=== PATIENT | female | born 2000 ===

== ENCOUNTER 2021-10-21 10:19 | Outpatient (CLI) | payer SELFPAY ==
[2021-10-21 11:24] VITALS: BP 128/81
== END 2021-10-21 11:38 | disposition home or self-care (01) ==
LOC: TRG 10:19 → APU 10:22 → TRG 11:38
PROVIDERS: ATTEND Obstetrics & Gynecology
DX: Z34.93 Encounter for supervision of normal pregnancy, unspecified, third trimester (principal); Z3A.37 37 weeks gestation of pregnancy
CPT/HCPCS: 59025

== ENCOUNTER 2021-10-22 16:40 | Inpatient (IN) | payer SELFPAY ==
[2021-10-22] MEDS ORDERED: OXYTOCIN 10 UNIT/1 ML INJ IM PRN (19:35)
[2021-10-22] MEDS ORDERED: BUTORPHANOL 2 MG/1 ML INJ IV PRN ×2 (19:35)
[2021-10-22] MEDS ORDERED: METHYLERGONOVINE MALEATE 0.2 MG/ML VIAL IM PRN (19:35)
[2021-10-22] MEDS ORDERED: LIDOCAINE (2%) 20 MG/1 ML VIAL 20 ML MDV INFILTRATI ONE (19:35)
[2021-10-22] MEDS ORDERED: ePHEDrine SULFATE 50 MG/1 ML INJ IV PRN (19:35)
[2021-10-22] MEDS ORDERED: MINERAL OIL 30 ML ORAL LIQD PO PRN (19:35)
[2021-10-22] MEDS ORDERED: CARBOPROST TROMETHAMINE 250 MCG/1 ML INJ IM PRN (19:35)
[2021-10-22] MEDS ORDERED: TERBUTALINE 1 MG/1 ML INJ SUB-Q PRN (19:35)
[2021-10-22] MEDS ORDERED: ACETAMINOPHEN 325 MG TAB PO PRN (19:35)
[2021-10-22] MEDS ORDERED: miSOPROStol 200 MCG TAB PR PRN (19:35)
[2021-10-22] MEDS ORDERED: LOPERAMIDE 2 MG CAP PO PRN (19:35)
--- NOTE | 2021-10-22 19:56 | History and Physical Report ---
History of Present Illness Date of examination: 10/22/21 Date of admission: 10/22/2021 Chief complaint: C/O uc x several hours History of present illness: 21 y/o presented to [facility] @ 39.5 wks with c/o uc x several hours. She denied VB or LOF and admitted to active FM. Pt states she initiated her pnc @ [facility] early preg and had no preg complications except for anemia in which she took Fe qd. Med, surgical, family hx is unremarkable. GBS is neg. Pt was found to be in labor and was admitted to L&D for delivery. Past History Past Medical History: no pertinent history Past Surgical History: no surgical history Family/Genetic History: none Social history: single, full code - Obstetrical History Expected Date of Delivery: 10/24/21 Actual Gestation: 39 Week(s) 5 Day(s) : 1 Para: 0 Medications and Allergies Allergies Allergy/AdvReac Type Severity Reaction Status Date / Time No Known Allergies Allergy Verified 10/21/21 11:13 Home Medications Medication Instructions Recorded Confirmed Last Taken Type Vit-Fe Fumar-FA [ 1 tab PO QDAY 10/21/21 10/21/21 10/20/21 History Vitamin] Active Meds: Active Medications Carboprost Tromethamine (Carboprost Tromethamine 250 Mcg/1 Ml Inj) 250 mcg IM ONCE PRN PRN Reason: Uterine Bleeding Ephedrine Sulfate (Ephedrine Sulfate 50 Mg/1 Ml Inj) 10 mg IV Q2M PRN PRN Reason: Hypotension Oxytocin/Sodium Chloride (Pitocin/Ns 30 Unit/500ml) 30 units in 500 mls @ 2 mls/hr IV TITR ANNALISA; Protocol Lactated Ringer's (Lactated Ringers) 1,000 mls @ 125 mls/hr IV DIRECT ANNALISA Oxytocin/Sodium Chloride (Pitocin/Ns 30 Unit/500ml) 30 units in 500 mls @ 40 mls/hr IV TITR ANNALISA; Protocol Loperamide HCl (Loperamide 2 Mg Cap) 2 mg PO ONCE PRN PRN Reason: give with Hemabate Methylergonovine Maleate (Methylergonovine Maleate 0.2 Mg/Ml Vial) 0.2 mg IM ONCE PRN PRN Reason: Uterine Bleeding Mineral Oil (Mineral Oil 30 Ml Oral Liqd) 30 ml PO QHS PRN PRN Reason: Constipation Oxytocin (Oxytocin 10 Unit/1 Ml Inj) 10 unit IM ONCE PRN PRN Reason: Uterine Bleeding Terbutaline Sulfate (Terbutaline 1 Mg/1 Ml Inj) 0.25 mg SUB-Q ONCE PRN PRN Reason: Hyperstimulation/Hypertonicity Review of Systems All systems: negative Eyes: deferred Ears, nose, mouth and throat: deferred Breasts: normal Genitourinary: normal appearance Rectal Exam: deferred - Vital Signs Vital signs: Vital Signs Pulse BP 112 H 118/81 10/22/21 17:24 10/22/21 17:24 Temp Pulse Resp BP Pulse Ox 98.3 F 115 H 20 118/81 99 10/22/21 18:59 10/22/21 19:40 10/22/21 18:59 10/22/21 18:59 10/22/21 19:40 - Physical Exam Breasts: Positive: normal Abdomen: Positive: normal appearance, soft, normal bowel sounds, other (gravid) Genitourinary (Female): Positive: normal external genitalia, normal perenium Vulva: both: normal Vagina: Positive: normal moisture Uterus: Positive: enlarged, normal contour, other (gravid) Adnexa: both: normal Anus/Rectum: Positive: normal perianal skin Extremities: Positive: normal - Obstetrical FHR: auscultation normal, category 1 Cervical Dilatation: 4.5 (per nurse) Cervical Effacement Percentage: 100 station: -1 Uterine Contraction Pattern: Regular Uterine Tone Measurement Phase: Resting Uterine Contraction Intensity: Mild Results All other labs normal. Assessment and Plan A: IUP@ 39.5wks Neg GBS Hx of anemia p: Admit to L&D Continuous monitoring Pain med/Epidural prn Start Pitocin per protocal as needed Anticipate
[2021-10-22] MEDS ORDERED: OXYTOCIN DRIP 30 UNITS/500 ML BAG IV SCH ×2 (20:00)
[2021-10-22 20:55] LABS: Hematocrit 34.1 % (30.3-42.9); Hemoglobin 11.2 gm/dl (10.1-14.3); Mean Corpuscular HGB Conc 33 % (30-34); Mean Corpuscular Volume 83 fl (79-97); Platelet Count 280 K/mm3 (140-440); Red Cell Distribution Width 16.8 % (13.2-15.2)
[2021-10-22] MEDS: fentaNYL 100 MCG/2 ML INJ IV PRN (22:29)
[2021-10-23] MEDS: fentaNYL 100 MCG/2 ML INJ IV PRN ×2 (00:36→03:33)
[2021-10-23] MEDS ORDERED: LIDOCAINE (2%) 20 MG/1 ML VIAL 20 ML MDV INFILTRATI ONE (03:25)
[2021-10-23] MEDS ORDERED: PROMETHAZINE 25 MG RECT SUPP PR PRN (04:11)
[2021-10-23] MEDS ORDERED: PROMETHAZINE 25 MG TAB PO PRN (04:11)
[2021-10-23] MEDS ORDERED: ACETAMINOPHEN 325 MG TAB PO PRN (04:11)
[2021-10-23] MEDS ORDERED: LANOLIN/ZINC/DIMETHICONE (LANSINOH) 7 GM TP PRN (04:11)
[2021-10-23] MEDS ORDERED: ONDANSETRON 4 MG/2 ML INJ IV PRN (04:11)
[2021-10-23] MEDS ORDERED: diphenhydrAMINE 25 MG CAP PO PRN (04:11)
[2021-10-23] MEDS ORDERED: oxyCODONE /ACETAMINOPHEN 5-325MG TAB PO PRN (04:11)
[2021-10-23] MEDS ORDERED: MAGNESIUM HYDROXIDE (MOM) ORAL LIQD UDC PO PRN (04:11)
[2021-10-23] MEDS ORDERED: WITCH HAZEL/ GLYCERIN PAD TP PRN (04:11)
--- NOTE | 2021-10-23 04:32 | Procedure Note ---
OB Delivery Note - Delivery Date of Delivery: 10/23/21 Surgeon: ZHOU HORTON Estimated blood loss: other (450cc) - Vaginal Delivery presentation: vertex Delivery position: OA Intrapartum events: meconium Delivery induction: none Delivery augmentation: rupture of membranes, pitocin Delivery monitor: external FHT, external uterine Route of delivery: Delivery placenta: spontaneous Delivery cord: 3 umbilical vessels Episiotomy: none Delivery laceration: 2nd degree Delivery repair: vicryl Anesthesia: local, intravenous Delivery comments: of a viable female infant in OA position. Spontaneous delivery of head and shoulders. directly to mom's chest for skin to skin bonding. Delayed cord clamping while NICU nurse dried and stimulated baby. Cord was doubled clamped and FOB was guided in cutting the cord. Cord blood was obtained, and infant was taken to infant warmer for an initial asses by the NICU nurse 8/9. Spontaneous delivery of an intact placenta with 3cv. Fundus @ U2 boggy intermittently with slow trickle of blood from vagina. Homeostasis was maintained with fundal massage, IV Pitocin, and 800mcg of Cytotec OR. An exploration of tears revealed a 2nd degree perineal lac which was repaired with a 3-[address]-1 under IV pain med and 2% Lidocaine. Pt tolerated repair well. Mom and baby was left in stable condition with nurses. QBL 450cc per nurse. FW 4355 Gms. - Infant A at 1 minute: 8 at 5 minutes: 9 Gender: Female (FW 4355Gms)
[2021-10-23] MEDS: LACTATED RINGERS 1,000 ML IV SCH (06:13)
[2021-10-23 07:30] LABS: Hematocrit 26.2 % (30.3-42.9); Hemoglobin 8.5 gm/dl (10.1-14.3)
--- NOTE | 2021-10-23 07:52 | Event Note ---
Date: 10/23/21 Property Man was notified by nurse that the pt fainted after getting up to the BR alone and a code was called. Nurse stated a lg blood clot was noted in pt's underwear at that time. She also reported that pt's fundus was firm below U and no further bleeding was noted after getting pt back to bed. Another bag of Pitocin was hung at that time. Pt is resting in bed @ present w/o complaints. FF below U and her Lochia is wnl @ present. Methergine Po and a early H&H was ordered. Dr Pagan and [facility] was notified.
[2021-10-23] MEDS: IBUPROFEN 600 MG TAB PO SCH ×2 (09:16→23:12)
[2021-10-23] MEDS: METHYLERGONOVINE 0.2 MG TABLET PO SCH ×2 (10:27→23:12)
[2021-10-23] MEDS ORDERED: SODIUM CHLORIDE 0.9% 500 ML 500 ML IV SCH (10:30)
--- NOTE | 2021-10-23 13:54 | Progress Note ---
Subjective - Subjective Date of service: 10/23/21 Interval history: AAOx3 moderate lochia Firm fundus delayed PP hemorrhage resolved Hb decreased 11.2-8.5, +ve tachycardia plan for transfusion 2 units PRBCs routine PP care Zoltan Gay MD Objective - Vital Signs Latest vital signs: Vital Signs Temp Pulse Resp BP BP Pulse Ox Pulse Ox 10/23/21 13:24 98.5 F 107 H 18 108/57 99 10/23/21 12:54 98.5 F 113 H 18 105/55 98 10/23/21 12:44 97.6 F 110 H 20 113/68 100 10/23/21 12:09 98.5 F 117 H 19 108/64 99 10/23/21 12:02 98.1 F 121 H 19 108/59 99 10/23/21 07:37 105 H 109/63 100 10/23/21 05:50 118 H 10/23/21 05:34 97.4 F L 123 H 16 114/74 99 10/23/21 05:10 134 H 96 10/23/21 05:05 133 H 98 10/23/21 05:00 132 H 97 10/23/21 04:55 137 H 96 10/23/21 04:50 112 H 96 10/23/21 04:47 107 H 93 10/23/21 04:45 110 H 98 10/23/21 04:42 107 H 116/64 10/23/21 04:40 112 H 98 10/23/21 04:35 113 H 96 10/23/21 04:33 18 10/23/21 04:30 129 H 97 10/23/21 04:27 110 H 119/62 10/23/21 04:25 119 H 98 10/23/21 04:21 118 H 91 10/23/21 04:20 108 H 97 10/23/21 04:15 110 H 98 10/23/21 04:12 112 H 121/61 10/23/21 04:10 114 H 94 10/23/21 04:05 109 H 96 10/23/21 04:00 111 H 98 10/23/21 03:55 115 H 97 10/23/21 03:50 113 H 97 10/23/21 03:45 115 H 97 10/23/21 03:40 126 H 96 10/23/21 03:35 112 H 98 10/23/21 03:33 18 10/23/21 03:30 122 H 94 10/23/21 03:25 124 H 96 10/23/21 03:20 124 H 95 10/23/21 03:15 144 H 93 10/23/21 03:14 141 H 94 10/23/21 03:10 113 H 98 10/23/21 03:05 116 H 97 10/23/21 03:00 109 H 99 10/23/21 02:55 120 H 96 10/23/21 02:50 123 H 97 10/23/21 02:49 115 H 93 10/23/21 02:45 137 H 96 10/23/21 02:40 123 H 100 10/23/21 02:35 115 H 98 10/23/21 02:30 114 H 98 10/23/21 02:25 113 H 97 10/23/21 02:20 111 H 98 10/23/21 02:15 100 H 98 10/23/21 02:12 107 H 93 10/23/21 02:10 104 H 97 10/23/21 02:05 120 H 97 10/23/21 02:04 116 H 90 10/23/21 02:00 113 H 99 10/23/21 01:55 130 H 97 10/23/21 01:50 121 H 97 10/23/21 01:45 112 H 95 10/23/21 01:44 118 H 94 10/23/21 01:40 88 96 10/23/21 01:36 18 10/23/21 01:35 86 99 10/23/21 01:30 97 H 98 10/23/21 01:25 110 H 99 10/23/21 01:20 115 H 99 10/23/21 01:15 92 H 98 10/23/21 01:10 100 H 98 10/23/21 00:58 106 H 95 10/23/21 00:57 95 H 94 10/23/21 00:53 109 H 97 10/23/21 00:48 97 H 96 10/23/21 00:45 93 H 94 10/23/21 00:43 91 H 96 10/23/21 00:38 91 H 96 10/23/21 00:36 18 10/23/21 00:33 105 H 99 10/23/21 00:28 97 H 98 11/24/21 00:23 102 H 99 24/21 00:18 110 H 98 2421 00:13 106 H 97 2421 00:08 107 H 97 10/23/21 00:03 101 H 99 2321 23:58 87 98 2321 23:53 92 H 99 21 23:48 92 H 96 2321 23:43 98 H 97 2321 23:29 18 23 23:26 99 H 98 2321 23:21 98 H 98 10/22/21 23:16 94 H 97 21 23:11 104 H 97 10/22/21 23:06 110 H 97 10/22/21 23:01 100 H 96 10/22/21 22:56 102 H 96 21 22:51 98 H 95 10/22/21 22:46 112 H 96 10/22/21 22:41 111 H 96 10/22/21 22:36 102 H 96 10/22/21 22:35 98 H 94 21 22:31 104 H 97 10/22/21 22:29 18 10/22/21 22:26 104 H 96 21 22:21 104 H 97 10/22/21 22:16 106 H 96 10/22/21 22:11 111 H 99 21 22:06 105 H 99 10/22/21 22:01 110 H 98 10/22/21 21:56 118 H 98 10/22/21 21:51 111 H 98 21 21:46 129 H 99 10/22/21 21:41 109 H 97 2321 21:36 107 H 96 21 21:31 112 H 96 2321 21:26 110 H 97 2321 21:21 109 H 97 2321 21:16 116 H 97 2321 21:11 115 H 97 2321 21:10 98.8 F 123 H 18 125/79 97 23/21 21:06 119 H 97 23/21 21:05 112 H 125/79 2321 21:04 118 H 2321 21:01 116 H 97 10/22/21 19:40 115 H 99 10/22/21 19:35 114 H 98 10/22/21 19:30 114 H 98 10/22/21 19:25 106 H 98 10/22/21 19:20 107 H 97 10/22/21 19:15 110 H 98 10/22/21 19:05 109 H 99 10/22/21 19:00 108 H 99 10/22/21 18:59 98.3 F 112 H 20 118/81 98 10/22/21 18:55 123 H 99 10/22/21 18:50 119 H 98 10/22/21 18:45 117 H 98 10/22/21 18:40 115 H 98 10/22/21 18:35 111 H 98 10/22/21 18:30 117 H 98 10/22/21 18:25 116 H 98 10/22/21 18:20 116 H 99 10/22/21 18:15 110 H 98 10/22/21 18:10 115 H 97 10/22/21 18:05 110 H 98 10/22/21 18:00 117 H 98 10/22/21 17:55 109 H 97 10/22/21 17:50 108 H 98 10/22/21 17:45 109 H 98 10/22/21 17:40 110 H 98 10/22/21 17:35 108 H 98 10/22/21 17:30 108 H 99 10/22/21 17:25 115 H 98 10/22/21 17:24 112 H 118/81 Intake and Output 10/22/21 10/23/21 10/23/21 23:59 07:59 15:59 Intake Total 0 Balance 0 Intake: Blood Product 0 Leukoreduced Red Blood 0 Cells Unit [id number] Other: Weight 82.1 kg - Labs Labs: Abnormal lab results 10/22/21 10/22/21 10/23/21 Range/Units 20:18 20:18 07:03 WBC 13.0 H (4.5-11.0) K/mm3 Hgb 8.5 L (10.1-14.3) gm/dl Hct 26.2 L D (30.3-42.9) % MCH 27 L (28-32) pg RDW 16.8 H (13.2-15.2) % Crossmatch See Detail
--- NOTE | 2021-10-24 06:01 | Progress Note ---
Assessment and Plan PPD#1 with PPH and s/p 2uPRBC and still with maternal tacchycardia; concern for retained products 1. Pt told NPO and ultrasound to be done for retained products 2. Will repeat CBC this am 3. Will start amp/gent for endomyometritis Plan of care discussed and pt agreeable. All questions encouraged and answered Subjective Date of service: 10/24/21 Principal diagnosis: PPD#1 with PPH Interval history: Pt awake with baby in arms. Pt denies headache, dizziness or chest pain or shortness of breath. Pt was transfused 2units of PRBC per nurse and hgb 10 at 10pm last night and pt still with tacchycardia. pt denies fever or chills and tolerated regular diet. Objective - Constitutional Vitals: Vital Signs - 12hr 10/23/21 10/23/21 10/23/21 18:26 20:00 23:12 Temperature Pulse Rate Respiratory 18 Rate Blood Pressure O2 Sat by Pulse Oximetry O2 Sat by Pulse 98 100 Oximetry [ Bilateral] 10/23/21 10/24/21 23:38 00:12 Temperature 98.9 F Pulse Rate 116 H Respiratory 16 18 Rate Blood Pressure 109/63 O2 Sat by Pulse 97 Oximetry O2 Sat by Pulse Oximetry [ Bilateral] General appearance: Present: no acute distress - Respiratory Respiratory effort: normal - Cardiovascular Rhythm: other (tacchycardia in the 110's) Extremities: No edema - Gastrointestinal General gastrointestinal: Present: soft - Genitourinary Female genitourinary: other (Uterine fundus tender and at the umbilicus and when pressed, moderate dark blood expressed.) - Neurologic Neurologic: moves all extremities - Psychiatric Psychiatric: cooperative - Labs CBC & Chem 7: 10/24/21 00:36 Labs: Abnormal lab results 10/22/21 10/23/21 10/24/21 Range/Units 20:18 07:03 00:36 Hgb 8.5 L 10.0 L (10.1-14.3) gm/dl Hct 26.2 L D (30.3-42.9) % Crossmatch See Detail Medications & Allergies - Medications Allergies/Adverse Reactions: Allergies No Known Allergies Allergy (Verified 10/21/21 11:13) Home Medications: Home Medications Medication Instructions Recorded Confirmed Last Taken Type Vit-Fe Fumar-FA [ 1 tab PO QDAY 10/21/21 10/23/21 10/20/21 History Vitamin] Active Medications: Generic Name Dose Route Start Last Admin Trade Name Freq PRN Reason Stop Dose Admin Acetaminophen 650 mg 10/23/21 04:11 Acetaminophen 325 Mg Tab PO Q4H PRN Pain MILD(1-3)/Fever >100.5/GIRARD Bisacodyl 10 mg 10/23/21 04:11 Bisacodyl 10 Mg Rect Supp MA BID PRN Constipation Carboprost Tromethamine 250 mcg 10/22/21 19:35 Carboprost Tromethamine 250 Mcg/1 Ml Inj IM ONCE PRN Uterine Bleeding Diphenhydramine HCl 25 mg 10/23/21 04:11 Diphenhydramine 25 Mg Cap PO Q6H PRN Itching Ephedrine Sulfate 10 mg 10/22/21 19:35 Ephedrine Sulfate 50 Mg/1 Ml Inj IV Q2M PRN Hypotension Oxytocin/Sodium Chloride 30 units in 500 mls @ 2 mls/hr 10/22/21 20:00 10/23/21 02:10 Pitocin/Ns 30 Unit/500ml IV 2 ml/hr TITR ANNALISA 2 mls/hr Administration Protocol Lactated Ringer's 1,000 mls @ 125 mls/hr 10/22/21 19:45 10/23/21 06:13 Lactated Ringers IV 250 mls/hr DIRECT ANNALISA Administration Oxytocin/Sodium Chloride 30 units in 500 mls @ 40 mls/hr 10/22/21 20:00 10/23/21 06:13 Pitocin/Ns 30 Unit/500ml IV 40 ml/hr TITR ANNALISA 40 mls/hr Administration Protocol Ibuprofen 600 mg 10/23/21 05:00 10/23/21 23:12 Ibuprofen 600 Mg Tab PO 600 mg Q6HR ANNALISA Administration Loperamide HCl 2 mg 10/22/21 19:35 Loperamide 2 Mg Cap PO ONCE PRN give with Hemabate Magnesium Hydroxide 30 ml 10/23/21 04:11 Magnesium Hydroxide (Mom) Oral Liqd Udc PO HS PRN Constipation Methylergonovine Maleate 0.2 mg 10/22/21 19:35 Methylergonovine Maleate 0.2 Mg/Ml Vial IM ONCE PRN Uterine Bleeding Methylergonovine Maleate 0.2 mg 10/23/21 10:00 10/23/21 23:12 Methylergonovine 0.2 Mg Tablet PO 0.2 mg Q8HR ANNALISA Administration Mineral Oil 30 ml 10/22/21 19:35 10/23/21 02:10 Mineral Oil 30 Ml Oral Liqd PO 30 ml QHS PRN Administration Constipation Multi-Ingredient Ointment 1 applic 10/23/21 04:11 Lanolin/Zinc/Dimethicone (Lansinoh) 7 Gm TP PRN PRN Sore Nipples Ondansetron HCl 4 mg 10/23/21 04:11 Ondansetron 4 Mg/2 Ml Inj IV Q8H PRN Nausea And Vomiting Oxycodone/Acetaminophen 1 tab 10/23/21 04:11 Oxycodone /Acetaminophen 5-325mg Tab PO Q6H PRN Pain, Moderate (4-6) Oxytocin 10 unit 10/22/21 19:35 Oxytocin 10 Unit/1 Ml Inj IM ONCE PRN Uterine Bleeding Promethazine HCl 25 mg 10/23/21 04:11 Promethazine 25 Mg Rect Supp MA Q6H PRN Nausea And Vomiting Promethazine HCl 25 mg 10/23/21 04:11 Promethazine 25 Mg Tab PO Q6H PRN Nausea And Vomiting Sodium Chloride 10 ml 10/23/21 05:00 Sodium Chloride 0.9% 10 Ml Flush Syringe IV PRN PRN LINE FLUSH Witch Autumn/Glycerin 1 each 10/23/21 04:11 10/23/21 06:27 Witch [place]umn/ Glycerin Pad TP 1 each PRN PRN Administration Hemorrhoid/cleansing/soothing
[2021-10-24] MEDS: IBUPROFEN 600 MG TAB PO SCH ×2 (06:30→22:29)
[2021-10-24] MEDS: METHYLERGONOVINE 0.2 MG TABLET PO SCH ×3 (06:30→21:56)
[2021-10-24] MEDS: AMPICILLIN/NS 2 GM/100 ML 2 GM/100 ML BAG IV SCH ×3 (06:38→22:15)
[2021-10-24] MEDS: LACTATED RINGERS 1,000 ML IV SCH (06:38)
[2021-10-24] MEDS ORDERED: GENTAMICIN 410 MG in SODIUM CHLORIDE 0.9% 100 ML IV SCH (07:00)
[2021-10-24 07:21] LABS: Basophils % (Auto) 0.3 % (0.0-1.8); Eosinophils # (Auto) 0.1 K/mm3 (0.0-0.4); Eosinophils % (Auto) 0.4 % (0.0-4.3); Hematocrit 30.8 % (30.3-42.9); Hemoglobin 9.9 gm/dl (10.1-14.3); Lymphocytes # (Auto) 1.8 K/mm3 (1.2-5.4); Lymphocytes % (Auto) 12.5 % (13.4-35.0); Mean Corpuscular HGB Conc 32 % (30-34); Mean Corpuscular Volume 86 fl (79-97); Monocytes # (Auto) 1.3 K/mm3 (0.0-0.8); Monocytes % (Auto) 8.9 % (0.0-7.3); Platelet Count 204 K/mm3 (140-440); Red Blood Count 3.59 M/mm3 (3.65-5.03); Red Cell Distribution Width 17.8 % (13.2-15.2)
--- NOTE | 2021-10-24 11:16 | Ultrasound Report ---
Pelvic ultrasound limited INDICATION: Maternal tachycardia. IMPRESSION: The endometrial thickness is 12 mm. No increased Doppler flow was appreciated within the endometrium. Signer Name: Malik Lopez MD Signed: 10/24/2021 11:12 AM Workstation Name: [id number]
[2021-10-25] MEDS: IBUPROFEN 600 MG TAB PO SCH ×2 (03:38→10:10)
--- NOTE | 2021-10-25 03:45 | Progress Note ---
Subjective - Subjective Principal diagnosis: PPD#2 with PPH(resolved) Interval history: PP hemorrhage resolved-is on PO methergine 0.2mg TIDx3 days. US negative for RPOC. Suspect endometritis. Afebrile: suspect tachycardia second to oral methergine use. Will repeat CBC and dc home with oral abx if WBC trending downward. clemente Gay MD Patient reports: appetite normal, voiding normally, pain well controlled, ambulating normally : doing well Objective - Vital Signs Latest vital signs: Vital Signs Temp Pulse Resp BP Pulse Ox Pulse Ox 10/25/21 03:38 20 10/24/21 23:19 98.2 F 103 H 20 121/80 100 10/24/21 22:29 20 10/24/21 20:00 99 10/24/21 18:17 98 10/24/21 16:17 98 10/24/21 16:11 97.9 F 115 H 17 108/70 99 10/24/21 14:16 98 10/24/21 12:15 98 10/24/21 12:01 97.9 F 112 H 18 106/65 99 10/24/21 10:14 98 10/24/21 08:26 97.9 F 99 H 17 103/62 100 10/24/21 08:11 98 10/24/21 06:30 18 Intake and Output 10/24/21 10/24/21 10/25/21 15:59 23:59 07:59 Intake Total 240 340 Balance 240 340 Intake: IV 100 AMPICILLIN/NS 2 GM/100 ML 100 2 gm In 100 ml @ 100 mls /hr IV Q6H [facility] Rx#: [id number] Oral 240 240 Other: Total, Intake Amount 240 120 # Voids Void 1 1 - Exam Breasts: Present: deferred Cardiovascular: Present: Regular rate Lungs: Present: Clear to auscultation Abdomen: Present: normal appearance, soft, normal bowel sounds Uterus: Present: fundal height below umbilicus Extremities: Present: normal Deep Tendon Reflex Grade: Normal +2 - Labs Labs: Abnormal lab results 10/24/21 Range/Units 06:49 WBC 14.2 H (4.5-11.0) K/mm3 RBC 3.59 L (3.65-5.03) M/mm3 Hgb 9.9 L (10.1-14.3) gm/dl RDW 17.8 H (13.2-15.2) % Lymph % (Auto) 12.5 L (13.4-35.0) % [place] % (Auto) 8.9 H (0.0-7.3) % [place] # (Auto) 1.3 H (0.0-0.8) K/mm3 Seg Neutrophils % 77.9 H (40.0-70.0) % Seg Neutrophils # 11.0 H (1.8-7.7) K/mm3
--- NOTE | 2021-10-25 03:48 | Discharge Summary ---
Providers - Providers Date of Admission: 10/22/21 19:36 Date of discharge: 10/25/21 Attending physician: KAYCE MEEK JR, MD Primary care physician: KAYCE MEEK JR, MD Hospitalization Delivery: complications: pelvic infection, transfusion Discharge diagnosis: IUP at term delivered Condition at discharge: Stable Disposition: 01 HOME / SELF CARE / HOMELESS Plan - Discharge Medications Prescriptions: clindamycin HCL [Clindamycin HCl] 300 mg PO BID 7 Days #14 capsule Ibuprofen [Motrin] 600 mg PO Q8H PRN #60 tablet PRN Reason: Pain - Provider Discharge Summary Activity: no sex for 6 weeks Diet: routine Instructions: routine Additional instructions: [] Smoking cessation referral if applicable(refer to patient education folder for contact #) [] Refer to [facility] Booklet Call your doctor immediately for: * Fever > 100.5 * Heavy vaginal bleeding ( >1 pad per hour) * Severe persistent headache * Shortness of breath * Reddened, hot, painful area to leg or breast * Drainage or odor from incision. * Keep incision clean and dry at all times and follow doctor's instructions regarding bathing/showering - Follow up plan Follow up: KAYCE MEEK JR, MD [Primary Care Provider] - 7 Days
[2021-10-25 05:40] LABS: Basophils % (Auto) 0.2 % (0.0-1.8); Eosinophils # (Auto) 0.2 K/mm3 (0.0-0.4); Eosinophils % (Auto) 2.2 % (0.0-4.3); Hematocrit 29.2 % (30.3-42.9); Hemoglobin 9.6 gm/dl (10.1-14.3); Lymphocytes # (Auto) 1.9 K/mm3 (1.2-5.4); Lymphocytes % (Auto) 17.2 % (13.4-35.0); Mean Corpuscular HGB Conc 33 % (30-34); Mean Corpuscular Volume 85 fl (79-97); Monocytes # (Auto) 0.9 K/mm3 (0.0-0.8); Monocytes % (Auto) 8.1 % (0.0-7.3); Platelet Count 208 K/mm3 (140-440); Red Blood Count 3.45 M/mm3 (3.65-5.03); Red Cell Distribution Width 18.1 % (13.2-15.2)
[2021-10-25 16:30] VITALS: BP 106/61
== END 2021-10-25 18:20 | disposition home or self-care (01) | DRG 807 ==
LOC: TRG 16:40 → APU 16:41 → LD 19:09 → APU 19:13 → TRG 19:35 → LD 19:36 → OB 10-23 05:16
PROVIDERS: ADMIT Obstetrics & Gynecology; ATTEND Obstetrics & Gynecology
PROC: 10E0XZZ Delivery of Products of Conception, External Approach (ICD-10-PCS; principal; 2021-10-23)
PROC: 0KQM0ZZ Repair Perineum Muscle, Open Approach (ICD-10-PCS; 2021-10-23)
PROC: 30233N1 Transfusion of Nonautologous Red Blood Cells into Peripheral Vein, Percutaneous Approach (ICD-10-PCS; 2021-10-23)
DX: O77.0 Labor and delivery complicated by meconium in amniotic fluid (principal); Z37.0 Single live birth; Z3A.39 39 weeks gestation of pregnancy; O70.1 Second degree perineal laceration during delivery; Z20.822 Contact with and (suspected) exposure to COVID-19
CPT/HCPCS: 36415; 59025; 76857; 85014; 85018; 85025; 85027; 86592; 86706; 86762; 86850; 86900; 86901; 86920; G0378; J3490; J0290; J1580; J2590; J3010; J7120; P9016; U0003